=== PATIENT | female | born 1980 | race Two or more races ===

== ENCOUNTER 2022-10-10 13:06 | Emergency (ER) | payer OTHER ==
[2022-10-10] MEDS ORDERED: ONDA4ODT MM (19:17)
== END 2022-10-10 20:26 | disposition home or self-care (01) ==
DX: R11.2 Nausea with vomiting, unspecified (principal); R19.7 Diarrhea, unspecified; Z91.09 Other allergy status, other than to drugs and biological substances; Z20.822 Contact with and (suspected) exposure to COVID-19